=== PATIENT | female | born 1990 | race African-American/Black ===

== ENCOUNTER 2022-01-22 18:23 | Emergency (ER) | payer MEDICAID, OTHER ==
[2022-01-22] MEDS ORDERED: Ondansetron PF 4 MG/2 ML Vial ONE (19:11)
[2022-01-22 19:12] LABS: #Eosinphils 0.1 10x3/uL (0.0-0.5); #Monocytes 0.4 10x3/uL (0.0-1.1); #Neutrophils 5.2 10x3/uL (1.5-8.4); %Basophils 0.1 % (0.0-2.0); %Eosinophils 1.2 % (0.0-6.0); %Lymphocytes 24.8 % (18.0-47.0); %Monocytes 5.5 % (0.0-10.0); %Neutrophils 68.3 % (40.0-75.0); Hemoglobin 9.1 g/dL (12.0-15.5); Mean Corpuscular HGB CONC 31.3 g/dL (32.0-36.0); Mean Corpuscular Hemoglobin 23.8 pg (27.0-33.0); Mean Platelet Volume 10.5 fl (7.4-10.4); Platelet Count 279 10x3/uL (150-450); RBC Distribution Width 17.2 % (11.5-14.5); Red Blood Cell (RBC) Count 3.83 10x6/uL (3.90-5.03); White Blood Cell (WBC) Count 7.6 10x3/uL (3.5-10.5)
[2022-01-22] MEDS ORDERED: Morphine 4 MG/ML VIAL ONE (19:12)
[2022-01-22 19:31] LABS: ALT (SGPT) 189 U/L (8-55); AST (SGOT) 110 U/L (5-34); Albumin 4.1 g/dL (3.5-5.0); Alkaline Phosphatase 201 U/L (40-110); Anion Gap 15 mmol/L (10-20); BUN (Urea Nitrogen) 7 mg/dL (7.0-18.7); Bilirubin, Total 1.1 mg/dL (0.2-1.2); CK (CPK) 120 U/L (29-168); Calc. Creatinine Clearance 0 mL/min (70-130); Calcium 8.9 mg/dL (7.8-10.44); Carbon Dioxide 23 mmol/L (22-29); Chloride 105 mmol/L (98-107); Estimated GFR 100; Globulin 2.5 g/dL (2.4-3.5); Glucose 85 mg/dL (70-105); Lipase 931 U/L (8-78); Magnesium 1.9 mg/dL (1.6-2.6); Potassium 3.7 mmol/L (3.5-5.1); Protein, Total 6.6 g/dL (6.0-8.3); Sodium 139 mmol/L (136-145)
[2022-01-22] MEDS ORDERED: Piperacillin/Tazobactam 3.375 GM VIAL ONE (21:32)
[2022-01-22 21:45] LABS: Bilirubin Neg (Negative); Blood, Urine Negative (Negative); Clarity Cloudy (Clear); Glucose, Urine (Dipstick) Normal (Negative); Ketone, Urine 50 mg/dL (Negative); Leukocyte 100 (Negative); Nitrite Negative (Negative); Protein, Urine (Dipstick) 15 mg/dl (Neg-Trace); Specific Gravity, Urine 1.025 (1.005-1.030)
[2022-01-22 21:46] LABS: Bacteria/HPF 1+ HPF (None Seen); RBC/HPF 0-3 HPF (0-3)
[2022-01-22 21:47] LABS: Mucous/LPF 1+ LPF (<2+)
[2022-01-22 22:53] LABS: SARS-CoV-2 NAA Rapid Test Not Detected (NotDetected)
== END 2022-01-23 02:09 | disposition short-term general hospital (02) ==
LOC: CSHERS 18:23
DX: K85.10 Biliary acute pancreatitis without necrosis or infection (principal); Z20.822 Contact with and (suspected) exposure to COVID-19
CPT/HCPCS: 76705; 81003; 81015; 82550; 83690; 83735; 96361; 96365; 96375; J2270; J2405; J2543; U0002